=== PATIENT | female | born 1940 | race African-American/Black ===

== ENCOUNTER 2017-07-22 12:15 | Inpatient (IN) | payer MEDICARE, MEDICAID ==
[~2017-07-22] VITALS: Ht 134.6 cm; Wt 68.0 kg
[2017-07-22 12:30] VITALS: BP 153/67
--- NOTE | 2017-07-22 13:43 | Diagnostic Imaging Report ---
Indication: Dyspnea Comparison: None A single view chest radiograph was obtained. Findings: Prominent pulmonary vascularity demonstrated, mild in degree with borderline cardiomegaly present. Left axillary stent noted. Right upper arm stent noted. Bones are osteopenic. Aorta is calcified. IMPRESSION: Suspected mild CHF/interstitial edema
[2017-07-22 13:47] LABS: BASOPHILS % (AUTO) 1.6 % (0.0-2.0); EOSINOPHILS % (AUTO) 5.8 % (0.0-3.0); HEMOGLOBIN 12.4 G/DL (12.0-16.0); LYMPHOCYTES % (AUTO) 25.1 % (20.0-45.0); MEAN CORPUSCULAR VOLUME 94 FL (80-99); MONOCYTES % (AUTO) 13.4 % (1.0-10.0); NEUTROPHILS % (AUTO) 54.3 % (45.0-75.0); PLATELET COUNT 155 K/UL (150-450); RED BLOOD COUNT 4.25 M/UL (4.20-5.40)
[2017-07-22 14:30] VITALS: BP 154/69
[2017-07-22 14:34] LABS: ANION GAP 11 mmol/L (5-15); BLOOD UREA NITROGEN 31 mg/dL (7-18); CARBON DIOXIDE 25 MMOL/L (21-32); CHLORIDE 97 MMOL/L (98-107); CREATININE 3.7 MG/DL (0.55-1.30); POTASSIUM 3.8 MMOL/L (3.5-5.1); SODIUM 132 MMOL/L (136-145)
[2017-07-22] MEDS ORDERED: Vancomycin 1 GM in NS 275 ML IV ONE (14:45)
[2017-07-22 14:48] LABS: ALANINE AMINOTRANSFERASE 20 U/L (12-78); ALBUMIN 2.7 G/DL (3.4-5.0); ALBUMIN/GLOBULIN RATIO 0.5 (1.0-2.7); ALKALINE PHOSPHATASE 192 U/L (46-116); ASPARTATE AMINO TRANSFERASE 27 U/L (15-37); BILIRUBIN,TOTAL 0.4 MG/DL (0.2-1.0); CREATINE KINASE 33 U/L (26-308)
[2017-07-22] MEDS ORDERED: Vancomycin 1gm inj IVPB ONE (15:11)
[2017-07-22] MEDS ORDERED: ASPIRIN-LOW81 MG ORAL (15:56)
[2017-07-22] MEDS ORDERED: BISACODYL5 MG RECTAL (15:56)
[2017-07-22] MEDS ORDERED: HUMALOG100 UNIT/4 SUBQ (15:56)
[2017-07-22] MEDS ORDERED: CALCIUM ACETAT667 M1 PO (15:56)
[2017-07-22] MEDS ORDERED: ALPHAGAN P5 M2 OP (15:56)
[2017-07-22] MEDS ORDERED: DOCUSATE SODIU100 MG ORAL (15:56)
[2017-07-22] MEDS ORDERED: KEPPRA500 M4 ORAL ×2 (15:56→15:58)
[2017-07-22] MEDS ORDERED: HYDRALAZINE HCL25 M1 ORAL (15:56)
[2017-07-22] MEDS ORDERED: FOLIC ACID1 MG ORAL (15:56)
--- NOTE | 2017-07-22 15:56 | Emergency Room Report ---
History of Present Illness General Chief Complaint: General Complaint Source: Medical Record, EMS Present Illness HPI 77-year-old female presents ED for evaluation. Sent in for abnormal labs. Patient has history of ESRD on analysis. patient had dialysis yesterday. PMD is Dr. Mcdonald who said that patient had labs drawn and her last dialysis session which showed positive blood cultures. Patient is here for further workup and evaluation. Patient states she feels okay. denies fevers or chills. Denies cough. Denies chest pain or shortness of breath. Did not produce urine. No other aggravating relieving factors. Denies any other associated symptoms Allergies: Coded Allergies: No Known Allergies (Unverified , 07/22/17) Patient History Past Medical History: DM Past Surgical History: none Pertinent Family History: none Social History: Denies: smoking, alcohol use, drug use Last Menstrual Period: Unk Now: No Immunizations: UTD Reviewed Nursing Documentation: PMH: Agreed, PSxH: Agreed Nursing Documentation-PMH Hx Hypertension: Yes - Hyperlipidemia Hx Diabetes: Yes - DM2 Review of Systems All Other Systems: negative except mentioned in HPI Physical Exam Vital Signs Date Time Temp Pulse Resp B/P (MAP) Pulse Ox O2 Delivery O2 Flow Rate FiO2 07/22/17 12:18 98.1 77 18 158/73 96 Room Air Sp02 EP Interpretation: reviewed, normal General Appearance: no apparent distress, alert, GCS 15, non-toxic Head: normocephalic, atraumatic Eyes: bilateral eye normal inspection, bilateral eye PERRL ENT: hearing grossly normal, normal pharynx, no angioedema, normal voice Neck: full range of motion, supple/symm/no masses Respiratory: chest non-tender, lungs clear, normal breath sounds, speaking full sentences Cardiovascular #1: regular rate, rhythm, no edema Cardiovascular #2: 2+ carotid (R), 2+ carotid (L), 2+ radial (R), 2+ radial (L) , 2+ dorsalis pedis (R), 2+ dorsalis pedis (L) Gastrointestinal: normal bowel sounds, non tender, soft, non-distended, no guarding, no rebound Rectal: deferred Genitourinary: normal inspection, no CVA tenderness Musculoskeletal: back normal, gait/station normal, non-tender Neurologic: alert, oriented x3, responsive, motor strength/tone normal, sensory intact, speech normal Psychiatric: judgement/insight normal, memory normal, mood/affect normal, no suicidal/homicidal ideation Reflexes: 3+ bicep (R), 3+ bicep (L), 3+ tricep (R), 3+ tricep (L), 3+ knee (R) , 3+ knee (L) Skin: normal color, no rash, warm/dry, well hydrated Lymphatic: no adenopathy Medical Decision Making Diagnostic Impression: Primary Impression: Bacteremia Additional Impression: ESRD (end stage renal disease) on dialysis ER Course Hospital Course 77-year-old female presents to ED for abnormal blood cultures drawn at last dialysis session Differential diagnoses include: Pneumonia, UTI, sepsis, dehydration, [place]/ unstable angina Clinical course Patient placed on stretcher. On certified orthotist practice manager with stable vitals are ED course. After initial history and physical, I ordered labs, EKG, chest x-ray, blood cultures, UA. Labs - BUN/Cr elevated, minimal leukocytosis, troponins 0.035, BNP elevated, lactate ok CXR - CHF, interstitial edema braod spectrum Abx given. Case discussed with Dr Mcdonald and they agreed to admit patient to their service for further care and support I feel this is a highly complex case requiring extensive working including EKG/ Rhythm strip, Xray/CT/US, Blood/urine lab work, repeat exams while in ED, and administration of strong opiates/narcotics for pain control, admission to hospital or close patient follow up. Diagnosis - bacteremia, ESRD on dialysis Patient admitted to floor in serious condition Labs Test 07/22/17 13:20 White Blood Count 7.0 K/UL (4.8-10.8) Red Blood Count 4.25 M/UL (4.20-5.40) Hemoglobin 12.4 G/DL (12.0-16.0) Hematocrit 40.0 % (37.0-47.0) Mean Corpuscular Volume 94 FL (80-99) Mean Corpuscular Hemoglobin 29.2 PG (27.0-31.0) Mean Corpuscular Hemoglobin Concent 31.0 G/DL (32.0-36.0) Red Cell Distribution Width 21.0 % (11.6-14.8) Platelet Count 155 K/UL (150-450) Mean Platelet Volume 8.2 FL (6.5-10.1) Neutrophils (%) (Auto) 54.3 % (45.0-75.0) Lymphocytes (%) (Auto) 25.1 % (20.0-45.0) Monocytes (%) (Auto) 13.4 % (1.0-10.0) Eosinophils (%) (Auto) 5.8 % (0.0-3.0) Basophils (%) (Auto) 1.6 % (0.0-2.0) Sodium Level 132 MMOL/L (136-145) Potassium Level 3.8 MMOL/L (3.5-5.1) Chloride Level 97 MMOL/L (98-107) Carbon Dioxide Level 25 MMOL/L (21-32) Anion Gap 11 mmol/L (5-15) Blood Urea Nitrogen 31 mg/dL (7-18) Creatinine 3.7 MG/DL (0.55-1.30) Estimat Glomerular Filtration Rate mL/min (>60) Glucose Level 151 MG/DL (74-106) Lactic Acid Level 0.70 mmol/L (0.66-2.22) Calcium Level 8.0 MG/DL (8.5-10.1) Total Bilirubin 0.4 MG/DL (0.2-1.0) Aspartate Amino Transf (AST/SGOT) 27 U/L (15-37) Alanine Aminotransferase (ALT/SGPT) 20 U/L (12-78) Alkaline Phosphatase 192 U/L (46-116) Total Creatine Kinase 33 U/L (26-308) Creatine Kinase MB 1.0 NG/ML (0.0-3.6) Creatine Kinase MB Relative Index 3.0 Troponin I 0.033 ng/mL (0.000-0.056) Pro-B-Type Natriuretic Peptide > 73060 pg/mL (0-125) Total Protein 8.5 G/DL (6.4-8.2) Albumin 2.7 G/DL (3.4-5.0) Globulin 5.8 g/dL Albumin/Globulin Ratio 0.5 (1.0-2.7) EKG Diagnostic Results Rate: normal Rhythm: NSR ST Segments: no acute changes ASA given to the pt in ED: No Rhythm Strip Diag. Results EP Interpretation: yes Rhythm: NSR, no ectopy Chest X-Ray Diagnostic Results Chest X-Ray Diagnostic Results : Chest X-Ray Ordered: Yes # of Views/Limited/Complete: 1 View Indication: Shortness of Breath EP Interpretation: Yes Interpretation: no pneumothorax, no acute cardiopulmonary disease, other - chf/interstitial edema Impression: Other - chf Electronically Signed by: Electronically signed by Peña Akins MD Last Vital Signs Date Time Temp Pulse Resp B/P (MAP) Pulse Ox O2 Delivery O2 Flow Rate FiO2 07/22/17 12:18 98.1 77 18 158/73 96 Room Air Status: improved Disposition: ADMITTED INPATIENT Condition: Serious Referrals: NIKKIE MCDONALD (PCP) PEÑA AKINS M.D. Jul 22, 2017 15:56
[2017-07-22] MEDS ORDERED: PLAVIX75 MG ORAL (15:58)
[2017-07-22] MEDS ORDERED: PRAVACHOL40 MG ORAL (15:58)
[2017-07-22] MEDS ORDERED: NORCO 10-325 T1 EACH ORAL (15:58)
[2017-07-22] MEDS ORDERED: NEPHRO-VITE RX1 EAC1 PO (15:58)
[2017-07-22] MEDS ORDERED: METOPROLOL TART25 MG ORAL (15:58)
[2017-07-22] MEDS ORDERED: ZANTAC150 MG ORAL (15:58)
[2017-07-22] MEDS ORDERED: RENVELA0.8 GM ORAL (15:58)
[2017-07-22] MEDS ORDERED: ZINC SULFATE220 M1 ORAL (16:00)
[2017-07-22] MEDS ORDERED: ZOFRAN4 M3 ORAL (16:00)
[2017-07-22] MEDS ORDERED: SERTRALINE HCL25 MG ORAL (16:00)
[2017-07-22] MEDS ORDERED: LATANOPROST2.5 ML BOTH EYES (16:00)
[2017-07-22 16:30] VITALS: BP 153/51
[2017-07-22] MEDS ORDERED: HydrALAZINE 25mg tab ORAL PRN (19:00)
[2017-07-22] MEDS ORDERED: HYDROcodone/Acetamin 10/325 tab ORAL PRN (19:00)
[2017-07-22 20:00] VITALS: BP 162/76
[2017-07-22] MEDS ORDERED: Metoprolol 25mg tab ORAL SCH (21:00)
[2017-07-22] MEDS ORDERED: Latanoprost 0.005% Opth 2.5ml Soln BOTH EYES SCH (21:00)
[2017-07-22] MEDS: Heparin 5000 units/ml inj SUBQ SCH (21:06)
[2017-07-22] MEDS: Metoprolol 25mg tab ORAL SCH (21:07)
[2017-07-22] MEDS: NovoLOG Insulin Flexpen SUBQ SCH (21:26)
[2017-07-22] MEDS: Latanoprost 0.005% Opth 2.5ml Soln BOTH EYES SCH (21:27)
[2017-07-23] VITALS (7 sets, daily range): BP systolic 143–165; BP diastolic 72–82
[2017-07-23] MEDS: NovoLOG Insulin Flexpen SUBQ SCH ×4 (06:28→21:00)
[2017-07-23 08:12] LABS: BASOPHILS % (AUTO) 0.9 % (0.0-2.0); EOSINOPHILS % (AUTO) 4.6 % (0.0-3.0); HEMATOCRIT 42.8 % (37.0-47.0); HEMOGLOBIN 13.1 G/DL (12.0-16.0); LYMPHOCYTES % (AUTO) 32.9 % (20.0-45.0); MEAN CORPUSCULAR VOLUME 94 FL (80-99); MONOCYTES % (AUTO) 9.8 % (1.0-10.0); NEUTROPHILS % (AUTO) 51.9 % (45.0-75.0); PLATELET COUNT 151 K/UL (150-450); RED BLOOD COUNT 4.55 M/UL (4.20-5.40); RED CELL DISTRIBUTION WIDTH 21.2 % (11.6-14.8); WHITE BLOOD COUNT 6.5 K/UL (4.8-10.8)
[2017-07-23 08:57] LABS: ALANINE AMINOTRANSFERASE 18 U/L (12-78); ALBUMIN 2.9 G/DL (3.4-5.0); ALBUMIN/GLOBULIN RATIO 0.5 (1.0-2.7); ALKALINE PHOSPHATASE 158 U/L (46-116); ANION GAP 12 mmol/L (5-15); ASPARTATE AMINO TRANSFERASE 30 U/L (15-37); BILIRUBIN,TOTAL 0.6 MG/DL (0.2-1.0); BLOOD UREA NITROGEN 44 mg/dL (7-18); CALCIUM 8.7 MG/DL (8.5-10.1); CARBON DIOXIDE 23 MMOL/L (21-32); CHLORIDE 98 MMOL/L (98-107); CHOLESTEROL 113 MG/DL (< 200); CREATININE 4.8 MG/DL (0.55-1.30); HDL CHOLESTEROL 56 MG/DL (40-60); POTASSIUM 4.1 MMOL/L (3.5-5.1); SODIUM 133 MMOL/L (136-145); TRIGLYCERIDES 42 MG/DL (30-150)
[2017-07-23] MEDS: Metoprolol 25mg tab ORAL SCH ×2 (09:00→21:00)
[2017-07-23] MEDS: Heparin 5000 units/ml inj SUBQ SCH ×2 (09:00→21:00)
[2017-07-23] MEDS: Renvela 800mg Pkt ORAL SCH ×3 (09:36→18:00)
[2017-07-23] MEDS: Sertraline 50mg tab ORAL SCH (09:36)
[2017-07-23] MEDS: Aspirin EC 81mg tab ORAL SCH (09:36)
[2017-07-23] MEDS: Docusate 100mg cap ORAL SCH ×2 (09:36→18:00)
[2017-07-23] MEDS: Nephrovite tab (Rena-Vite) ORAL SCH (09:37)
[2017-07-23] MEDS: Zinc Sulfate 220mg cap ORAL SCH (09:50)
[2017-07-23] MEDS: Brimonidine 0.2% Opth Sol BOTH EYES SCH ×3 (09:51→18:00)
[2017-07-23] MEDS: Timolol 0.5% Op Soln 2.5ml BOTH EYES SCH ×2 (09:51→18:00)
[2017-07-23] MEDS: Calcium Acetate 667mg Tab ORAL SCH ×3 (11:30→16:30)
--- NOTE | 2017-07-23 12:55 | Consultation ---
Consult Note Assessment/Plan Renal consult dictated # [id number] SHONDA HIRSCH Jul 23, 2017 12:55
--- NOTE | 2017-07-23 13:52 | Wound Care Consultation ---
Wound Assessment Wound Assessment #1: Wound Number: 1 Wound Present on Admission: Yes New Wound: No Status Change of Wound: No Wound Location Body Site Modif: mid Wound Location Body Site: sacral Wound Type: pressure ulcer Lila Test: Does not Lila Pressure Ulcer Stage: III Wound Thickness: Full Thickness Wound Length: 3.5 Wound Width: 3.5 Wound Depth: utd Percent of Wound Purple/Maroon: 100 Wound Drainage Description: Serosanguineous Wound Drainage Amount: Moderate Wound Drainage Odor: None/Absent Tissue Surrounding Wound: Erythemic Wound General Appearance: Reddened - purple Wound Assessment #2: Wound Number: 2 Wound Present on Admission: Yes New Wound: No Status Change of Wound: No Wound Location Body Site Modif: right, anterior Wound Location Body Site: knee Wound Type: scab Lila Test: Does not Lila Wound Thickness: Full Thickness Percent of Wound Black/Brown: 100 - dry Wound Drainage Amount: None Wound Drainage Odor: None/Absent Tissue Surrounding Wound: Intact Wound General Appearance: Blackened - dry Wound Assessment #3: Wound Number: 3 Wound Present on Admission: Yes New Wound: No Status Change of Wound: No Wound Location Body Site Modif: mid Wound Location Body Site: coccyx Wound Type: scar Lila Test: Does not Lila Wound Thickness: Full Thickness Wound Length: 2.5 Wound Width: 2.5 Wound Depth: utd Percent of Wound [place]/Red: 100 Wound Drainage Amount: None Wound Drainage Odor: None/Absent Tissue Surrounding Wound: Intact Wound General Appearance: Reddened Wound Comment #1 Sacral unstageable pressure ulcer. Surrounding skin with full thickness scar tissue #2 Coccyx full thickness scar tissue. #3 Dry scabs on anterior right knee Recommendation -Keep clean and dry -Turn and reposition -Low air loss mattress -Optimize nutrition -Assess and f/u accordingly for any changes ROSS VILLALTA RN Jul 23, 2017 13:52
--- NOTE | 2017-07-23 16:17 | Consultation ---
DATE OF CONSULTATION: 07/23/2017 NEPHROLOGY CONSULTATION CONSULTING PHYSICIAN: Alex Messer M.D. REFERRING PHYSICIAN: Sen Willams M.D. REASON FOR CONSULTATION: End-stage renal disease, requiring hemodialysis. HISTORY OF PRESENT ILLNESS: This is a 77-year-old female, who has end-stage renal disease, on hemodialysis. The patient apparently had blood cultures done as an outpatient which was positive and she was sent to the emergency room and was admitted. The patient's stone grader is Dr. Khan and I am covering for him. PAST MEDICAL HISTORY: The patient has history of diabetes mellitus, bilateral lower extremity amputations, and hyperlipidemia. MEDICATIONS: Reviewed in the EMR. ALLERGIES: No known drug allergies. SOCIAL HISTORY: No history of smoking or alcohol abuse. REVIEW OF SYSTEMS: Noncontributory. PHYSICAL EXAMINATION: GENERAL: The patient is an elderly female, in no acute distress. VITAL SIGNS: Blood pressure is 156/74, pulse 73, respiratory rate is 18, and temperature 97.7. HEENT: [place] conjunctivae. Anicteric sclerae. NECK: Supple. LUNGS: Clear to auscultation. HEART: S1 and S2 without murmurs or rubs. ABDOMEN: Soft and nontender. EXTREMITIES: No cyanosis or edema. LABORATORY FINDINGS: The CBC shows a WBC of 6.5, hematocrit is 42.8, hemoglobin is 13.1, and platelets is 151,000. Chemistry panel shows a serum sodium 133, potassium 4.1, chloride 98, BUN is 44, creatinine 4.8, phosphorus 5, and magnesium 2.6. Albumin is 2.9. ASSESSMENT: This is a 77-year-old female admitted for positive blood cultures. She has history of end-stage renal disease, on hemodialysis every Thursday, , and Thursday. She has history of diabetes. PLAN: The patient will be dialyzed today. Labs will be followed and adjustments will be made in the patient's regimen. The patient is on vancomycin. Thank you very much, Dr. Willams, for this consultation. Alex Messer M.D. DR: JED JOB#: [id number] CC:
--- NOTE | 2017-07-23 18:16 | History and Physical Report ---
DATE OF ADMISSION: 07/22/2017 CHIEF COMPLAINT: Positive blood culture. HISTORY OF PRESENT ILLNESS: This is a 77-year-old woman with a history of blindness; end-stage renal disease, on hemodialysis on Thursday, , and Thursday; and diabetes with amputation of bilateral lower extremities who was noted to have positive blood cultures in skilled nursing and the patient was sent for admission for further evaluation. The patient denies any chest pain. No nausea or vomiting. No abdominal pain. No fever or chills. PAST SURGICAL HISTORY: History of amputation of both legs and history of catheter placement and AV graft placement. MEDICATIONS AT [facility]: Please refer to medication reconciliation. I have reviewed at length. ALLERGIES: No known drug allergies. FAMILY HISTORY: Noncontributory. SOCIAL HISTORY: The patient resides in a skilled nursing. No smoking. No alcohol. No illicit drug use. REVIEW OF SYSTEMS: CONSTITUTIONAL: No malaise or fatigue. No fevers or chills. HEENT: No acute change in vision. No tinnitus. No epistaxis. No dysphagia. The patient has bilateral blindness of the eyes. CARDIAC: No history of hypertension. LUNGS: No history of COPD or asthma. No cough or wheezing. ABDOMEN: No nausea, vomiting, or abdominal pain. ENDOCRINE: History of hyperlipidemia and diabetes. EXTREMITIES: Peripheral vascular disease and amputation of lower extremities. NEUROLOGIC: History of seizure. All other systems reviewed and negative except for what was mentioned above. PHYSICAL EXAMINATION: VITAL SIGNS: Blood pressure upon arrival to the emergency is 158/73, respiratory rate of 18, temperature is 98.1, pulse 77, and O2 saturation is 96% on room air. GENERAL: The patient is lying is bed, bilateral blindness noted. NECK: Supple. CARDIAC: S1 and S2 are normal. Systolic murmur of 2/6 at left sternal border. LUNGS: Clear to auscultation bilaterally. ABDOMEN: Soft, nontender, and nondistended. No guarding. No rebound. EXTREMITIES: Bilateral lower extremity amputation. NEUROLOGIC: The patient follows commands. Moves limbs. LABORATORY AND DIAGNOSTIC DATA: Labs on admission, WBC 7.0, hemoglobin 12.4, hematocrit 40, and platelets are 155,000. Sodium 132, potassium 3.8, chloride 97, bicarb 25, BUN 31, creatinine 3.7, glucose 151, lactate 0.7, and calcium is 8. Total bilirubin is 0.4. AST 27, ALT 20, and alkaline phosphatase 192. Creatine kinase 33. Troponin 0.033. BNP is over 35,000. Albumin 2.7. EKG normal sinus rhythm. Nonspecific ST changes. Chest x-ray, no acute disease. IMPRESSION: 1. Positive blood cultures done from outside facility, query for bacteremia. 2. End-stage renal disease, on hemodialysis. 3. Hyponatremia. 4. Moderate protein-calorie malnutrition. 5. Peripheral vascular disease, status post bilateral amputation. 6. Yarsanism. 7. Diabetes. 8. Hyperlipidemia. 9. Hypertension. PLAN: 1. Admit to Med/Surg. 2. Follow up on new cultures. 3. Empiric antibiotic vancomycin initiated. 4. Renal consult with continuation of the hemodialysis while inpatient. 5. Glycemic control. 6. Resume skilled nursing medications. 7. DVT and GI prophylaxis. 8. Seizure precaution. 9. Aspiration precaution. 10. Code status is Full Code. 11. Resume feeding pureed diet. 12. Further recommendations to follow pending the patient's response to above measures and results of cultures. Time spent on evaluation and intervention of care is 70 minutes. Sen Willams M.D. DR: TOÑO JOB#: [id number] CC:
[2017-07-23] MEDS ORDERED: Heparin Sod 1000 units/ml 10ml IV ONE (20:00)
[2017-07-23] MEDS: Latanoprost 0.005% Opth 2.5ml Soln BOTH EYES SCH (20:41)
[2017-07-24] VITALS: BP 162/80
[2017-07-24 04:00] VITALS: BP 167/74
[2017-07-24] MEDS: NovoLOG Insulin Flexpen SUBQ SCH ×4 (06:30→21:21)
[2017-07-24] MEDS: Calcium Acetate 667mg Tab ORAL SCH ×3 (06:30→17:41)
[2017-07-24 08:00] VITALS: BP 152/91
[2017-07-24] MEDS: Zinc Sulfate 220mg cap ORAL SCH (10:42)
[2017-07-24] MEDS: Nephrovite tab (Rena-Vite) ORAL SCH (10:42)
[2017-07-24] MEDS: Renvela 800mg Pkt ORAL SCH ×3 (10:42→18:00)
[2017-07-24] MEDS: Metoprolol 25mg tab ORAL SCH ×2 (10:43→21:25)
[2017-07-24] MEDS: Sertraline 50mg tab ORAL SCH (10:43)
[2017-07-24] MEDS: Aspirin EC 81mg tab ORAL SCH (10:43)
[2017-07-24] MEDS: Docusate 100mg cap ORAL SCH ×2 (10:43→18:00)
[2017-07-24] MEDS: Heparin 5000 units/ml inj SUBQ SCH ×2 (10:45→21:20)
[2017-07-24] MEDS: Brimonidine 0.2% Opth Sol BOTH EYES SCH ×3 (10:46→17:44)
[2017-07-24] MEDS: Timolol 0.5% Op Soln 2.5ml BOTH EYES SCH ×2 (10:47→17:45)
[2017-07-24] MEDS ORDERED: ACETAMINOPHEN325 M1 ORAL (11:24)
[2017-07-24] MEDS ORDERED: ASPIRIN-LOW81 MG ORAL (11:25)
[2017-07-24] MEDS ORDERED: BISACODYL10 M1 RC (11:25)
[2017-07-24] MEDS ORDERED: CALCIUM ACETAT667 MG PO (11:26)
[2017-07-24] MEDS ORDERED: ALPHAGAN P5 M2 OP (11:26)
[2017-07-24] MEDS ORDERED: PLAVIX75 MG ORAL (11:27)
[2017-07-24] MEDS ORDERED: DOCUSATE SODIU100 M2 ORAL (11:28)
[2017-07-24] MEDS ORDERED: FAMOTIDINE20 MG ORAL (11:28)
[2017-07-24] MEDS ORDERED: FOLIC ACID1 M1 PO (11:28)
[2017-07-24] MEDS ORDERED: HYDRALAZINE HCL25 M2 PO (11:30)
[2017-07-24] MEDS ORDERED: HYDROCODON-ACE1 EA13 ORAL (11:31)
[2017-07-24] MEDS ORDERED: LATANOPROST2.5 ML BOTH EYES (11:32)
[2017-07-24] MEDS ORDERED: NOVOLOG100 UNIT/4 SQ (11:32)
[2017-07-24] MEDS ORDERED: KEPPRA750 MG ORAL (11:33)
[2017-07-24] MEDS ORDERED: LOPRESSOR25 M1 ORAL (11:34)
[2017-07-24] MEDS ORDERED: ZOFRAN4 M1 ORAL (11:34)
[2017-07-24] MEDS ORDERED: ZOLOFT20 MG/1 ML ORAL (11:36)
[2017-07-24] MEDS ORDERED: PRAVASTATIN SOD40 M1 ORAL (11:36)
[2017-07-24] MEDS ORDERED: RENVELA800 MG ORAL (11:37)
[2017-07-24] MEDS ORDERED: TIMOLOL MALEATE5 M1 OP (11:39)
[2017-07-24] MEDS ORDERED: ZINC SULFATE220 M2 ORAL (11:40)
[2017-07-24] MEDS ORDERED: NEPHROVITE1 TAB ORAL (11:40)
[2017-07-24 12:00] VITALS: BP 156/81
[2017-07-24] MEDS ORDERED: Vancomycin 750mg/D5W 275ml IVPB ONE ×2 (13:00)
[2017-07-24] MEDS ORDERED: Vancomycin 750mg/NS 250ml IVPB ONE (13:00)
--- NOTE | 2017-07-24 14:02 | Nephrology Progress Note ---
Assessment/Plan Problem List: (1) ESRD (end stage renal disease) on dialysis (2) Bacteremia (3) DM (diabetes mellitus) (4) HTN (hypertension) Plan HD tomorrow watch BP abxs follow labs Subjective Subjective feels ok Objective Objective Last 24 Hour Vital Signs Date Time Temp Pulse Resp B/P (MAP) Pulse Ox O2 Delivery O2 Flow Rate FiO2 07/24/17 10:43 84 152/91 07/24/17 08:00 97.7 84 20 152/91 94 Room Air 07/24/17 04:00 96.6 66 20 167/74 97 Room Air 07/24/17 00:00 96.2 73 20 162/80 93 Room Air 07/23/17 18:58 Room Air 07/23/17 18:40 70 28 143/72 Room Air 07/23/17 18:40 Room Air 07/23/17 16:00 97.0 76 20 158/78 97 07/23/17 15:00 97.8 73 45 164/78 Room Air 07/23/17 14:00 Room Air Intake and Output 07/23/17 07/24/17 19:00 07:00 Intake Total 2210 ml 120 ml Output Total 1000 ml 0 ml Balance 1210 ml 120 ml Intake Oral 2210 ml 120 ml Output Urine Total 0 ml Hemodialysis UF 1000 ml # Voids 1 # Bowel Movements 2 Height (Feet): 4 Height (Inches): 5.00 Weight (Pounds): 150 Cardiovascular: normal rate Respiratory/Chest: lungs clear SHONDA HIRSCH Jul 24, 2017 14:02
[2017-07-24 16:04] VITALS: BP 154/68
[2017-07-24] MEDS: Latanoprost 0.005% Opth 2.5ml Soln BOTH EYES SCH (21:21)
[2017-07-24 23:40] VITALS: BP 162/81
[2017-07-25 03:32] VITALS: BP 178/84
--- NOTE | 2017-07-25 04:00 | Discharge Summary ---
DATE OF ADMISSION: 07/22/2017 DATE OF DISCHARGE: 07/24/[address] Sen chapman re-admission to [facility]. ADMITTING DIAGNOSES: 1. Positive blood culture, possible bacteremia. 2. End-stage renal disease, on hemodialysis. 3. Hyponatremia. 4. Moderate protein-calorie malnutrition. 5. Peripheral vascular disease, status post bilateral amputation. 6. Diabetes. 7. Hyperlipidemia. 8. Hypertension. 9. Voodoo. DISCHARGE DIAGNOSES: 1. Positive blood culture, possible bacteremia. 2. End-stage renal disease, on hemodialysis. 3. Hyponatremia. 4. Moderate protein-calorie malnutrition. 5. Peripheral vascular disease, status post bilateral amputation. 6. Diabetes. 7. Hyperlipidemia. 8. Hypertension. 9. Voodoo. CONSULTANTS: Nephrology. HOSPITAL COMPLICATIONS: None. HOSPITAL COURSE: Please refer to initial history and physical for more details. In summary, this is a 77-year-old woman with a history of blindness; end-stage renal disease, on hemodialysis Thursday, , and ; diabetes; and amputation of the bilateral lower extremities. She was noted to have positive blood cultures in the dialysis unit and was sent for further evaluation. The patient was started on empiric antibiotics. Cultures drawn here, which were negative. The patient's vital signs and electrolytes were normal. The patient got dialysis while in-house. The patient will require completion of the antibiotic, which will be given in dialysis unit for 14 days and will follow up with the results of the cultures, so far is negative. After the completion of course of the antibiotics, the patient will have redrawn blood cultures to make sure the infection is cleared. DIET: Pureed, diabetic, renal, low-salt, cardiac. ACTIVITY: The patient has bilateral amputation. The patient is bedbound. Aspiration precaution in place. DISCHARGE MEDICATIONS: Please refer to discharge MAR for complete list of medications. In summary, the patient is on: 1. Aspirin 81 mg daily. 2. Plavix 75 mg p.o. daily. 3. Colace 100 mg twice daily. 4. Folic acid 1 mg daily. 5. Keppra 750 mg Thursday, , and Thursday's post dialysis. 6. Zoloft 50 mg daily. 7. Renvela 800 mg three times daily. 8. Zinc sulfate 220 mg daily. 9. Pepcid 20 mg daily. 10. Nephro-Deidra one tablet daily. 11. Timolol eyedrops once to both eyes daily. 12. Alphagan one drop three times a day in both eyes. 13. PhosLo 667 mg three times a day with meals. 14. Pravastatin 40 mg at bedtime. 15. Metoprolol tartrate 25 mg q.12 h. 16. Xalatan one drop both eyes b.i.d. 17. Vancomycin will be dosed post dialysis to complete 14-day course from day of initiation. DISPOSITION: Disposition to senior living facility [facility]. FOLLOWUP: Follow up appointment with myself within five days. CONDITION ON DISCHARGE: Stable. Time spent in discharge planning today, discussing with the social scientist and nurse, and answering the patient's questions 40 minutes. Sen Willams M.D. DR: Abran JOB#: [id number] CC: ALETHEA
[2017-07-25] MEDS: Calcium Acetate 667mg Tab ORAL SCH ×2 (06:16→11:30)
[2017-07-25] MEDS: NovoLOG Insulin Flexpen SUBQ SCH ×2 (06:22→11:30)
[2017-07-25 07:28] LABS: BASOPHILS % (AUTO) 1.5 % (0.0-2.0); EOSINOPHILS % (AUTO) 3.9 % (0.0-3.0); HEMATOCRIT 41.4 % (37.0-47.0); HEMOGLOBIN 12.9 G/DL (12.0-16.0); LYMPHOCYTES % (AUTO) 26.1 % (20.0-45.0); MEAN CORPUSCULAR VOLUME 97 FL (80-99); NEUTROPHILS % (AUTO) 58.5 % (45.0-75.0); PLATELET COUNT 154 K/UL (150-450); RED BLOOD COUNT 4.27 M/UL (4.20-5.40); RED CELL DISTRIBUTION WIDTH 20.9 % (11.6-14.8); WHITE BLOOD COUNT 6.4 K/UL (4.8-10.8)
[2017-07-25 07:31] LABS: ANION GAP 13 mmol/L (5-15); BLOOD UREA NITROGEN 35 mg/dL (7-18); CALCIUM 8.5 MG/DL (8.5-10.1); CARBON DIOXIDE 22 MMOL/L (21-32); CHLORIDE 101 MMOL/L (98-107); CREATININE 4.6 MG/DL (0.55-1.30); PHOSPHORUS 4.3 MG/DL (2.5-4.9); POTASSIUM 4.6 MMOL/L (3.5-5.1); SODIUM 136 MMOL/L (136-145)
[2017-07-25] MEDS: Renvela 800mg Pkt ORAL SCH (08:02)
[2017-07-25] MEDS: Aspirin EC 81mg tab ORAL SCH (08:03)
[2017-07-25] MEDS: Sertraline 50mg tab ORAL SCH (08:03)
[2017-07-25] MEDS: Metoprolol 25mg tab ORAL SCH (08:04)
[2017-07-25] MEDS: Nephrovite tab (Rena-Vite) ORAL SCH (08:04)
[2017-07-25] MEDS: Zinc Sulfate 220mg cap ORAL SCH (08:04)
[2017-07-25] MEDS: Docusate 100mg cap ORAL SCH (08:04)
[2017-07-25] MEDS: Heparin 5000 units/ml inj SUBQ SCH (08:06)
[2017-07-25 08:38] VITALS: BP 168/89
[2017-07-25] MEDS: Timolol 0.5% Op Soln 2.5ml BOTH EYES SCH (09:22)
[2017-07-25] MEDS: Brimonidine 0.2% Opth Sol BOTH EYES SCH (09:22)
[2017-07-25] MEDS ORDERED: Tubing IV Secondary IV ONE (12:11)
[2017-07-25] MEDS ORDERED: NS 275ml ONE (12:11)
[2017-07-25] MEDS ORDERED: Heparin Sod 1000 units/ml 10ml IV ONE (14:15)
--- NOTE | 2017-08-04 00:22 | Cardiology Report ---
APPROVED REPORT EKG Measurement Heart [id number] Sinus rhythm with 1st degree AV block with occasional premature ventricular complexes and premature atrial complexes Left axis deviation Septal infarct, age undetermined Abnormal ECG
== END 2017-07-25 12:12 | DRG 871 ==
LOC: EDBD 12:15 → EDUNIT# 12:15 → EMR 12:51 → 4E 14:25 → EDBEDREQ 15:44 → 4E 16:31
PROC: 5A1D70Z Performance of Urinary Filtration, Intermittent, Less than 6 Hours Per Day (ICD-10-PCS; principal; 2017-07-23)
DX: R78.81 Bacteremia (principal); N18.6 End stage renal disease; E44.0 Moderate protein-calorie malnutrition; I12.0 Hypertensive chronic kidney disease with stage 5 chronic kidney disease or end stage renal disease; E11.22 Type 2 diabetes mellitus with diabetic chronic kidney disease; E87.1 Hypo-osmolality and hyponatremia; I73.9 Peripheral vascular disease, unspecified; E78.5 Hyperlipidemia, unspecified; H54.7 Unspecified visual loss; E11.51 Type 2 diabetes mellitus with diabetic peripheral angiopathy without gangrene; Z74.01 Bed confinement status; Z99.2 Dependence on renal dialysis; Z68.37 Body mass index [BMI] 37.0-37.9, adult; Z89.512 Acquired absence of left leg below knee; Z89.511 Acquired absence of right leg below knee
CPT/HCPCS: 36415; 71010; 80048; 80053; 80061; 80202; 80299; 82550; 82553; 82962; 83605; 83735; 83880; 84100; 84443; 84484; 85025; 87040; 87081; 93005; 99285; J1815